=== PATIENT | female | born 1985 | race American Indian/Alaskan Native ===

== ENCOUNTER 2018-12-03 05:01 | Inpatient (IN) | payer MEDICAID ==
[2018-12-03] MEDS ORDERED: SUBLIMAZE IV PRN (05:23)
[2018-12-03] MEDS ORDERED: BRETHINE IVP PRN (05:23)
[2018-12-03] MEDS ORDERED: AMPICILLIN/NS 2 GM/100 ML 2 GM/100 ML BAG IV ONE (05:23)
[2018-12-03] MEDS ORDERED: XYLOCAINE 2% INFILTRATI ONE (05:23)
[2018-12-03] MEDS ORDERED: BRETHINE SUB-Q PRN (05:23)
[2018-12-03] MEDS ORDERED: MINERAL OIL PO PRN (05:23)
[2018-12-03] MEDS ORDERED: LACTATED RINGERS 1,000 ML IV SCH (06:00)
[2018-12-03] MEDS ORDERED: PITOCin/NS 20 UNIT/1000ML DRIP 20 UNITS/1,000 ML BAG IV SCH (06:00)
[2018-12-03 06:18] LABS: Hematocrit 31.7 % (30.3-42.9); Hemoglobin 9.8 gm/dl (10.1-14.3); Mean Corpuscular HGB Conc 31 % (30-34); Mean Corpuscular Volume 80 fl (79-97); Platelet Count 184 K/mm3 (140-440); Red Blood Count 3.95 M/mm3 (3.65-5.03); Red Cell Distribution Width 18.2 % (13.2-15.2)
--- NOTE | 2018-12-03 06:23 | History and Physical Report ---
History of Present Illness Date of examination: 12/03/18 Date of admission: 12/03/2018 Chief complaint: contractions History of present illness: 33y/o @ 39+5 weeks presents to triage with advanced cervical dilation of 7-8cm. She denies leakage of fluid. The patient states she receives care @ [facility]. She reports she is GBS positive. records are not available. Past History Past Medical History: no pertinent history Past Surgical History: no surgical history Social history: single - Obstetrical History Expected Date of Delivery: 12/05/18 Actual Gestation: 39 Week(s) 5 Day(s) : 7 Para: 5 Hx # Term Pregnancies: 4 Number of Pregnancies: 1 Spontaneous Abortions: 0 Induced : 1 Number of Living Children: 5 Medications and Allergies Allergies Allergy/AdvReac Type Severity Reaction Status Date / Time No Known Allergies Allergy Verified 12/03/18 05:23 Active Meds: Active Medications Ephedrine Sulfate (Ephedrine Sulfate) 10 mg IV Q2M PRN PRN Reason: Hypotension Fentanyl (Sublimaze) 100 mcg IV Q2H PRN PRN Reason: Labor Pain Oxytocin/Sodium Chloride (Pitocin/Ns 20 Unit/1000ml Drip) 20 units in 1,000 mls @ 125 mls/hr IV DIRECT ALMA Lactated Ringer's (Lactated Ringers) 1,000 mls @ 125 mls/hr IV DIRECT ALMA Ampicillin Sodium (Ampicillin/Ns 2 Gm/100 Ml) 2 gm in 100 mls @ 100 mls/hr IV ONCE ONE; Protocol Stop: 12/03/18 06:22 Ampicillin Sodium (Ampicillin/Ns 1 Gm/50 Ml) 1 gm in 50 mls @ 100 mls/hr IV Q4H R ALMA; Protocol Mineral Oil (Mineral Oil) 30 ml PO QHS PRN PRN Reason: Constipation Terbutaline Sulfate (Brethine) 0.25 mg SUB-Q ONCE PRN PRN Reason: Hyperstimulation/Hypertonicity Terbutaline Sulfate (Brethine) 0.25 mg IVP ONCE PRN PRN Reason: Hyperstimulation/Hypertonicity Review of Systems All systems: negative Genitourinary: pelvic pain, contractions - Physical Exam Breasts: Positive: deferred Cardiovascular: Regular rate Lungs: Positive: Clear to auscultation Abdomen: Positive: normal appearance Results Result Diagrams: 12/03/18 05:40 Abnormal lab results 08/23/19 Range/Units 05:40 Hgb 9.8 L (10.1-14.3) gm/dl MCH 25 L (28-32) pg RDW 18.2 H (13.2-15.2) % All other labs normal. Assessment and Plan - Patient Problems (1) Active labor at term Current Visit: Yes Status: Acute Plan to address problem: Admit to L&D and initiate antibiotics
[2018-12-03 06:55] LABS: Hepatitis C Virus Antibody Non-Reactive (NonReactive)
[2018-12-03] MEDS ORDERED: LANSINOH TP PRN (07:27)
[2018-12-03] MEDS ORDERED: TYLENOL PO PRN (07:27)
[2018-12-03] MEDS ORDERED: NORCO 5/325 PO PRN (07:27)
[2018-12-03] MEDS ORDERED: TUCKS PAD TP PRN (07:27)
--- NOTE | 2018-12-03 07:27 | Procedure Note ---
OB Delivery Note - Delivery Date of Delivery: 12/03/18 Surgeon: DOV CROSS Estimated blood loss: 100cc - Vaginal Delivery presentation: vertex Delivery position: OA Intrapartum events: none Delivery induction: AROM Delivery monitor: external FHT, external uterine Route of delivery: Delivery placenta: spontaneous Delivery cord: nuchal cord, 3 umbilical vessels Episiotomy: none Delivery laceration: none Anesthesia: none Delivery comments: Patient progressed to C/C/+2 and pushed to deliver a liveborn female with apgars of 8/9. After delivery of the head, a nuchal cord was surgically reduced. The shoulders delivered without difficulty. The was bulb suctioned. The infant was then placed on the warmer. The placenta delivered spontaneously intact with a 3VC. No lacerations noted. Weight 7lbs 2oz. EBL 100ml - Infant A at 1 minute: 8 at 5 minutes: 9 Gender: Female (weight 7lbs 2oz)
[2018-12-03] MEDS ORDERED: SODIUM CHLORIDE FLUSH SYRINGE 10 ML IV NR (08:00)
[2018-12-03] MEDS: IBUPROFEN PO SCH ×3 (08:12→20:06)
[2018-12-03] MEDS ORDERED: AMPICILLIN/NS 1 GM/50 ML 1 GM/50 ML BAG IV SCH (09:24)
[2018-12-03 19:19] LABS: Hematocrit 26.2 % (30.3-42.9); Hemoglobin 8.3 gm/dl (10.1-14.3)
[2018-12-04] MEDS: IBUPROFEN PO SCH ×3 (06:40→17:47)
[2018-12-05] MEDS: IBUPROFEN PO SCH ×4 (05:32→14:00)
[2018-12-05 09:03] VITALS: BP 130/77
--- NOTE | 2018-12-05 10:56 | Progress Note ---
Assessment and Plan PPD1 s/p of viable female Acute on chronic anemia- Fe BID Bottle feeding VSS Anticipate d/c to home tomorrow Subjective - Subjective Date of service: 12/05/18 Principal diagnosis: PPD1 Interval history: Pt is PPD1 s/p of viable female infant. Patient reports: appetite normal, voiding normally, pain well controlled, ambulating normally [place]: doing well, bottle feeding (pt elects for exclusive bottle feeding) Objective - Vital Signs Latest vital signs: Vital Signs Temp Pulse Resp BP BP Pulse Ox 12/05/18 09:02 98.1 F 60 18 130/77 99 12/04/18 23:29 98.5 F 76 20 107/73 98 12/04/18 16:02 98.0 F 65 18 111/65 99 12/04/18 12:08 97.7 F 79 18 114/74 100 Intake and Output 12/04/18 12/05/18 12/05/18 23:59 07:59 15:59 Intake Total 240 Balance 240 Intake: Oral 240 Other: Total, Intake Amount 240 # Voids Void 1 1 - Exam Cardiovascular: Present: Regular rate, Normal S1, Normal S2, No murmurs Lungs: Present: Clear to auscultation, Normal air movement Abdomen: Present: normal appearance, soft. Absent: guarding Uterus: Present: normal, firm, fundal height below umbilicus Extremities: Present: normal
--- NOTE | 2018-12-05 11:01 | Discharge Summary ---
Providers - Providers Date of Admission: 12/03/18 07:40 Date of discharge: 12/06/18 Attending physician: DOV CROSS Primary care physician: DOV CROSS Hospitalization Reason for admission: active labor Delivery: Episiotomy: none Laceration: none Other procedures: none complications: none Discharge diagnosis: IUP at term delivered baby: female Hospital course: Pt presented to [facility] in active labor. She received care at [facility], PNR not available. She progressed to a of viable female infant. She developed acute on chronic anemia, supplemented with ferrous sulfate. She elects for bottle feeding and Depo . Condition at discharge: Good Disposition: DC-01 TO HOME OR SELFCARE Plan - Discharge Medications Prescriptions: Ferrous Sulfate [Ferrous Sulfate 324 MG] 324 mg PO BID #60 tablet. Ibuprofen [Motrin] 600 mg PO Q6H PRN #120 tablet PRN Reason: Pain - Provider Discharge Summary Activity: routine, no sex for 6 weeks, no heavy lifting 4 weeks, no strenuous exercise Additional instructions: [] Smoking cessation referral if applicable(refer to patient education folder for contact #) [] Refer to [facility] Booklet Call your doctor immediately for: * Fever > 100.5 * Heavy vaginal bleeding ( >1 pad per hour) * Severe persistent headache * Shortness of breath * Reddened, hot, painful area to leg or breast * Drainage or odor from incision. * Keep incision clean and dry at all times and follow doctor's instructions regarding bathing/showering - Follow up plan Follow up: DOV CROSS MD [Primary Care Provider] - 6 Weeks (Please call [place] reconciliation technician to schedule appointment)
== END 2018-12-05 16:20 | disposition home or self-care (01) | DRG 775 ==
LOC: TRG 05:01 → LD 06:13 → TRG 07:37 → LD 07:40 → OB 08:57
PROVIDERS: ADMIT Obstetrics & Gynecology; ATTEND Obstetrics & Gynecology
PROC: 10E0XZZ Delivery of Products of Conception, External Approach (ICD-10-PCS; principal; 2018-12-03)
PROC: 10907ZC Drainage of Amniotic Fluid, Therapeutic from Products of Conception, Via Natural or Artificial Opening (ICD-10-PCS; 2018-12-03)
DX: O99.824 Streptococcus B carrier state complicating childbirth (principal); O69.1XX0 Labor and delivery complicated by cord around neck, with compression, not applicable or unspecified; O99.02 Anemia complicating childbirth; D64.9 Anemia, unspecified; Z37.0 Single live birth; Z3A.39 39 weeks gestation of pregnancy
CPT/HCPCS: 36415; 85014; 85018; 85027; 86592; 86706; 86762; 86803; 86850; 86900; 86901; 87806; G0378; J0290; J2590; J7120